=== PATIENT | female | born 1940 | race Caucasian/White ===

== ENCOUNTER 2021-01-11 18:08 | Emergency (ER) | payer MEDICARE ==
[~2021-01-11] VITALS: Ht 165.1 cm; Wt 75.3 kg
--- NOTE | 2021-01-11 18:39 | PHYS DOC ---
Past History Past Medical History: Anemia, Angina, Arthritis, CAD, DVT, Heart Disease, Hypertension, Pneumonia Past Medical History PE Past Surgical History: Coronary Bypass Surgery Past Surgical History Stents x3 coronary arteries General Adult EDM: Chief Complaint: CHEST PAIN HPI: HPI: "..I am up here visiting..I just been sick the last two days... my grandson got the same thing..." Patient is a 80 year old female who presents with above hx of visiting family here since October from [place]. pt. has not had COVID vaccination. Hx. Fever, Chills, cough, dyspnea and some chest discomfort.. Patient denies any history of immunosuppression. No specific ill contacts in [place]. Grandson here recently had upper respiratory infection. Has not had flu vaccination this season.., Pt has past hx CADz, 3 Stents, DVT, PE, CABG. patient has been compliant with all her cardiac meds including Plavix and Xarelto Review of Systems: Review of Systems: Constitutional: Subjective history of fever or chills Eyes: Denies change in visual acuity HENT: History of nasal congestion and sore throat Respiratory: History of cough and shortness of breath Cardiovascular: Chest discomfort. GI: Denies abdominal pain, nausea, vomiting, bloody stools or diarrhea : Denies dysuria Musculoskeletal: Denies back pain or joint pain Integument: Denies rash Neurologic: Denies headache, focal weakness or sensory changes Endocrine: Denies polyuria or polydipsia Lymphatic: Denies swollen glands Psychiatric: Denies depression or anxiety Family History: Family History: Grandson has an upper respiratory infection Current Medications: Current Meds: See nursing for home meds Allergies: Allergies: Allergic to adhesive tape and Procaine Physical Exam: PE: Constitutional: Moderate acute distress, non-toxic appearance. [] HENT: Normocephalic, atraumatic, bilateral external ears normal, oropharynx moist, mild injection pharynx no oral exudates, nose swollen turbinates and clear rhinorrhea Eyes: PERRLA, EOMI, conjunctiva normal, no discharge. [] Neck: Normal range of motion, no tenderness, supple, no stridor. [] Cardiovascular:Heart rate regular rhythm, no murmur, PMI to left. Monitor shows a sinus rhythm with a fascicular block.. Lungs & Thorax: Bilateral breath sounds equal apex with scattered wheezes on auscultation [] midline scar.Pacemaker Abdomen: Bowel sounds normal, soft, no tenderness, no masses, no pulsatile masses. Old surgery scars. Skin: Warm, dry, no erythema, no rash. Pt. has poor Turgor. Back: No tenderness, no CVA tenderness. [] Extremities: No tenderness, no cyanosis, no clubbing, ROM intact, ankle edema. Arthritic changes Neurologic: Alert and oriented X 3, moves extremities on request, has distal sensory, old surgical scars, no focal deficits noted. [] Psychologic: Affect anxious, judgement normal, mood normal. [] EKG: EKG: [][address] [address] IMAGING REPORT Signed PATIENT: EFE MEREDITH ACCOUNT: [id number] : 1940 LOCATION: ER AGE: 80 SEX: F EXAM STATUS: REG ER ORD. PHYSICIAN: AZAM NUR MD REASON: dyspnea, chills, cough PROCEDURE: CHEST PA & LATERAL Site ID: [id number] EXAMINATION: XR CHEST 2V. HISTORY: 80 years Female Reason: dyspnea, chills, cough / Spl. Instructions: / History: . . COMPARISON: None. Findings: Calcified granuloma in the right lung base is seen. Slight opacity along the left cardiac apex areas probably related to pericardial fat pad. Pacemaker with 2 cardiac leads and sternotomy wires are noted.. The heart size is slightly enlarged. There is no effusion or pneumothorax. The mediastinum and amy appear unremarkable. Impression: Cardiomegaly. No focal infiltrate. Electronically signed by: Rafael Garcia MD (01/11/2021 6:58 PM) [id number] DICTATED AND SIGNED BY: RAFAEL GARCIA MD DATE: 01/11/211856 CC: AZAM NUR MD; PCP,NO ~MTH0 0 Radiology/Procedures: Radiology/Procedures: [][address] [place] [address] IMAGING REPORT Signed PATIENT: EFE MEREDITH ACCOUNT: [id number] : 1940 LOCATION: ER AGE: 80 SEX: F EXAM STATUS: REG ER ORD. PHYSICIAN: AZAM NUR MD REASON: dyspnea, chills, cough PROCEDURE: CHEST PA & LATERAL Site ID: [id number] EXAMINATION: XR CHEST 2V. HISTORY: 80 years Female Reason: dyspnea, chills, cough / Spl. Instructions: / History: . . COMPARISON: None. Findings: Calcified granuloma in the right lung base is seen. Slight opacity along the left cardiac apex areas probably related to pericardial fat pad. Pacemaker with 2 cardiac leads and sternotomy wires are noted.. The heart size is slightly enlarged. There is no effusion or pneumothorax. The mediastinum and amy appear unremarkable. Impression: Cardiomegaly. No focal infiltrate. Electronically signed by: Rafael Garcia MD (01/11/2021 6:58 PM) [id number] DICTATED AND SIGNED BY: RAFAEL GARCIA MD DATE: 01/11/211856 CC: AZAM NUR MD; PCP,NO ~MTH0 0 Heart Score: C/O Chest Pain: Yes HEART Score for Chest Pain: HEART Score for Chest Pain Response (Comments) Value History Highly Suspicious 2 ECG Nonspecific Repolarizatio 1 Age > 65 2 Risk Factors 1 or 2 Risk Factors 1 Troponin < Normal Limit 0 Total 6 Risk Factors: Risk Factors: DM, Current or recent (<one month) smoker, HTN, HLP, family history of CAD, obesity. Risk Scores: Score 0 - 3: 2.5% MACE over next 6 weeks - Discharge Home Score 4 - 6: 20.3% MACE over next 6 weeks - Admit for Clinical Observation Score 7 - 10: 72.7% MACE over next 6 weeks - Early Invasive Strategies Course & Med Decision Making: Course & Med Decision Making Pertinent Labs and Imaging studies reviewed. (See chart for details) Patient currently elects not to be admitted at this time. Patient continue cardiac meds previous directed. Patient taking Zithromax 250 mg daily. Use MDI 2 puffs 4 times a day. Patient use her home sat monitor evaluate for drops in oxygenation. Patient return if any concerns. Patient take Tylenol and ibuprofen as needed. Discomfort. Advised patient most likely symptoms are from viral syndrome. Will cover with Zithromax in the event this is a bacterial infection. Use MDI 2 puffs 4 times a day.. Patient follow-up urine culture. Patient return if any concerns. Self isolate. Follow-up Covid test. Impression: 1. Upper respiratory infection 2. Bronchitis 3. Urinary tract infection. 4. Renal insufficiency creatinine 1.2 BUN 22 5. Anemia 10.5 hemoglobin 6. Hypomagnesium = 1.5 7. Hx. CADz/ sp Stents and CABG 8. Fever's [] Dragon Disclaimer: Dragon Disclaimer: This electronic medical record was generated, in whole or in part, using a voice recognition dictation system. Departure Departure: Referrals: PCP,NO (PCP) Scripts Azithromycin (ZITHROMAX) 250 Mg Tablet 250 MG PO DAILY for ANTI-BIOTIC for 5 Days, #5 TAB 0 Refills Prov: AZAM NUR MD 01/11/21 Sohail Disclaimer This chart was dictated in whole or in part using Voice Recognition software in a busy, high-work load, and often noisy Emergency Department environment. It may contain unintended and wholly unrecognized errors or omissions. Dragon Disclaimer This chart was dictated in whole or in part using Voice Recognition software in a busy, high-work load, and often noisy Emergency Department environment. It may contain unintended and wholly unrecognized errors or omissions. AZAM NUR MD January 11, 2021 18:39
--- NOTE | 2021-01-11 18:44 | EKG ---
[address] [address] Test Date: 2021-01-11 Test Time: 18:26:51 Pat Name: EFE MEREDITH Department: Room: Gender: F Roll Capper: : 1940 Requested By: ZAAM NUR Order Number: [id number] Reading MD: Measurements Intervals [place] Rate: 74 P: -32 WA: 232 QRS: -80 QRSD: 160 T: 49 QT: 454 QTc: 504 Interpretive Statements SINUS RHYTHM PROLONGED WA INTERVAL ABNORMAL LEFT AXIS DEVIATION S1,S2,S3 PATTERN LEFT ANTERIOR FASCICULAR BLOCK NON SPECIFIC INTRAVENTRICULAR BLOCK RVH WITH REPOLARIZATION ABNORMALITY QRS(T) CONTOUR ABNORMALITY CONSIDER ANTEROSEPTAL MYOCARDIAL DAMAGE ABNORMAL ECG RI6.02 No previous ECG available for comparison
[2021-01-11] MEDS ORDERED: AZITHROMYCIN 250 MG TABLET. PO ONE (18:45)
[2021-01-11] MEDS ORDERED: IV RINGERS SOLUTION,LACTATED 1,000 ML IV SCH (18:45)
[2021-01-11] MEDS ORDERED: ALBUTEROL SULFATE 8GM INHALER. INH ONE (18:45)
[2021-01-11] MEDS ORDERED: ASPIRIN CHEWABLE 81 MG TABLET. PO ONE (18:45)
[2021-01-11] MEDS ORDERED: ACETAMINOPHEN 500 MG TABLET PO ONE (18:45)
--- NOTE | 2021-01-11 19:00 | RAD ---
Site ID: [id number] EXAMINATION: XR CHEST 2V. HISTORY: 80 years Female Reason: dyspnea, chills, cough / Spl. Instructions: / History: . . COMPARISON: None. Findings: Calcified granuloma in the right lung base is seen. Slight opacity along the left cardiac a pex areas probably related to pericardial fat pad. Pacemaker with 2 cardiac leads and sternotomy wire s are noted.. The heart size is slightly enlarged. There is no effusion or pneumothorax. The mediastinum and amy appear unremarkable. Impression: Cardiomegaly. No focal infiltrate. Electronically signed by: Ulysses Garcia MD (01/11/2021 6:58 PM) [id number]
[2021-01-11 20:04] LABS: BASO % 0 % (0-3); EOS # 0.1 x10^3/uL (0.0-0.7); EOS % 2 % (0-3); HEMATOCRIT 32.3 % (36.0-47.0); HEMOGLOBIN 10.5 g/dL (12.0-15.5); LYMPH # 0.9 x10^3/uL (1.0-4.8); LYMPH % 14 % (24-48); MEAN CORPUSCULAR HEMOGLOBIN 32 pg (25-35); MEAN CORPUSCULAR HGB CONC 33 g/dL (31-37); MEAN CORPUSCULAR VOLUME 96 fL (79-100); MONO # 0.6 x10^3/uL (0.0-1.1); MONO % 9 % (0-9); NEUT # 4.8 x10^3uL (1.8-7.7); NEUT % 75 % (31-73); PLATELET COUNT 246 x10^3/uL (140-400); RED BLOOD COUNT 3.35 x10^6/uL (3.50-5.40); RED CELL DISTRIBUTION WIDTH 14.4 % (11.5-14.5); WHITE BLOOD COUNT 6.4 x10^3/uL (4.0-11.0)
[2021-01-11 20:10] LABS: CALCIUM 9.8 mg/dL (8.5-10.1); CREATININE 1.2 mg/dL (0.6-1.0); GFR 43.4; POTASSIUM 3.8 mmol/L (3.5-5.1)
[2021-01-11 20:19] LABS: INFLUENZA A PATIENT NEGATIVE (NEGATIVE); INFLUENZA B PATIENT NEGATIVE (NEGATIVE)
[2021-01-11 20:23] LABS: ALBUMIN 3.4 g/dL (3.4-5.0); DIRECT BILIRUBIN 0.1 mg/dL (0.0-0.2); MAGNESIUM 1.5 mg/dL (1.8-2.4); TOTAL BILIRUBIN 0.5 mg/dL (0.2-1.0); TOTAL PROTEIN 6.6 g/dL (6.4-8.2)
[2021-01-11 21:37] LABS: BILIRUBIN,URINE NEG (NEG); CLARITY,URINE HAZY; COLOR,URINE YELLOW; GLUCOSE,URINE NEG (NEG); NITRITE,URINE NEG (NEG); RBC,URINE 0 /HPF (0-2); UROBILINOGEN,URINE 0.2 mg/dL (0.2 mg/dL)
[2021-01-11 21:38] LABS: BACTERIA,URINE FEW /HPF (0-FEW); BARBITURATES NEG (NEG); BENZODIAZEPINES NEG (NEG); CANNABINOIDS NEG (NEG); COCAINE NEG (NEG); METHADONE NEG (NEG); OPIATES NEG (NEG); PHENCYCLIDINE NEG (NEG); SQUAMOUS EPITHELIAL CELL,UR OCC /LPF
[2021-01-11 21:41] LABS: AMPHETAMINE/METHAMPHETAMINE NEG (NEG)
[2021-01-11] MEDS ORDERED: MAGNESIUM HYDROXIDE 2,400 MG/30 ML ORAL.SUSP. PO ONE (23:15)
[2021-01-11] MEDS ORDERED: AZIT250T PO (23:20)
[2021-01-12 00:36] VITALS: BP 133/58
== END 2021-01-12 00:35 | disposition home or self-care (01) ==
LOC: ER 18:08
DX: J40 Bronchitis, not specified as acute or chronic (principal); D64.9 Anemia, unspecified; N39.0 Urinary tract infection, site not specified; N28.9 Disorder of kidney and ureter, unspecified; E83.42 Hypomagnesemia; Z20.822 Contact with and (suspected) exposure to COVID-19
CPT/HCPCS: 36415; 71046; 80048; 80076; 80307; 81001; 83605; 83615; 83690; 83735; 83880; 84443; 84484; 85025; 87040; 87070; 87086; 87804; 87880; 93005; 94640; 96360; 96361; 99285; C9803; J7120; U0003; 94664

== ENCOUNTER → 2021-11-29 | Outpatient (CLI) | payer MEDICARE ==
[~2021-11-29] MED LIST: AZIT250T PO
[2021-11-29 11:30] LABS: BASO % 1 % (0-3); EOS # 0.1 x10^3/uL (0.0-0.7); EOS % 3 % (0-3); HEMATOCRIT 37.5 % (36.0-47.0); HEMOGLOBIN 12.3 g/dL (12.0-15.5); LYMPH # 1.5 x10^3/uL (1.0-4.8); LYMPH % 37 % (24-48); MEAN CORPUSCULAR HEMOGLOBIN 33 pg (25-35); MEAN CORPUSCULAR HGB CONC 33 g/dL (31-37); MEAN CORPUSCULAR VOLUME 99 fL (79-100); MONO # 0.4 x10^3/uL (0.0-1.1); MONO % 9 % (0-9); NEUT # 2.1 x10^3uL (1.8-7.7); NEUT % 51 % (31-73); PLATELET COUNT 236 x10^3/uL (140-400); RED BLOOD COUNT 3.77 x10^6/uL (3.50-5.40); RED CELL DISTRIBUTION WIDTH 14.3 % (11.5-14.5); WHITE BLOOD COUNT 4.2 x10^3/uL (4.0-11.0)
[2021-11-29 11:40] LABS: ALBUMIN 3.5 g/dL (3.4-5.0); ALBUMIN/GLOBULIN RATIO 1.2 (1.0-1.7); CALCIUM 9.3 mg/dL (8.5-10.1); CREATININE 1.1 mg/dL (0.6-1.0); GFR 47.9; TOTAL BILIRUBIN 0.5 mg/dL (0.2-1.0); TOTAL PROTEIN 6.4 g/dL (6.4-8.2)
[2021-11-30 01:10] LABS: HEMOGLOBIN A1C 6.1 % (4.8-5.6)
== END ==
LOC: LAB 10:59
PROVIDERS: ATTEND Internal Medicine Cardiovascular Disease
DX: I47.1 Supraventricular tachycardia (principal); I87.1 Compression of vein; E78.2 Mixed hyperlipidemia; I45.89 Other specified conduction disorders; R73.09 Other abnormal glucose
CPT/HCPCS: 36415; 80053; 80061; 83036; 85025